=== PATIENT | male | born 1960 | race Caucasian/White ===

== ENCOUNTER → 2016-07-12 | Outpatient (CLI) | payer OTHER ==
[~2016-07-12] MED LIST: AUGM875T27 PO; CELE-19 PO; COLA100C PO; COZA50TA PO; FISH5CAP PO; HYDR12.55 PO; HYZA50TA2 PO; LOSA50TA20 PO; LUTECAP2 PO; MULTCAP PO; MYLI40DR PO; NEUR600T PO; PERCOCET PO; ROXI1TAB2 PO; SIMV20TA2 PO; TYLE325T5 PO; VITA100072 PO; ZOCO10TA PO
--- NOTE | 2016-07-13 23:05 | ECGEPIP ---
Stationary ECG Study [facility] Test Date: 2016-07-12 Pat Name: INOCENCIA ARGUELLES Department: Room: - Gender: M Utilization Review Nurse: : 1960 Requested By: DILIA Rogers Order Number: [id number] Reading MD: Helen Wynn Measurements Intervals [place] Rate: 66 P: 47 NV: 166 QRS: 53 QRSD: 98 T: 10 QT: 396 QTc: 415 Interpretive Statements SINUS RHYTHM Electronically Signed On 07-13-2016 23:05:25 EST by Helen Wynn
== END ==
LOC: M EKG 14:39
PROVIDERS: ATTEND Anesthesiology
DX: Z01.818 Encounter for other preprocedural examination (principal)

== ENCOUNTER 2016-07-19 06:30 | Day surgery (SDC) | payer OTHER ==
[~2016-07-19] VITALS: Ht 167.6 cm; Wt 93.0 kg
[2016-07-19] VITALS (7 sets, daily range): BP systolic 127–145; BP diastolic 65–79
[2016-07-19] MEDS ORDERED: LR 1,000 ML IV SCH ×3 (06:45→10:00)
[2016-07-19] MEDS ORDERED: ceFAZolin SOD 1 GM in D5W MINI-BAG PLUS 50 ML IV ONE (06:45)
[2016-07-19] MEDS ORDERED: MIDAZOLAM INJ 2 MG/2 ML VIAL (J2250) As Ordered ONE (07:05)
[2016-07-19] MEDS ORDERED: fentaNYL 250 MCG/5 ML INJECTION (J3010) As Ordered ONE (07:06)
[2016-07-19] MEDS ORDERED: LIDOCAINE 2% INJ 100 MG/5 ML SDV (FOR ANES.) As Ordered ONE (07:07)
[2016-07-19] MEDS ORDERED: PROPOFOL 200 MG/20 ML VIAL As Ordered ONE ×2 (07:07→07:08)
[2016-07-19] MEDS ORDERED: ROCURONIUM BROMIDE 50 MG/5 ML VIAL As Ordered ONE (07:10)
[2016-07-19] MEDS ORDERED: BUPIVACAINE/EPIN 0.25% 30 ML VIAL As Ordered ONE (07:23)
[2016-07-19] MEDS ORDERED: dexameTHASONE 4 MG/ML 1ML VIAL (J1100) As Ordered ONE (08:03)
[2016-07-19] MEDS ORDERED: METOCLOPRAMIDE INJ 10MG/2ML VIAL (J2765) As Ordered ONE (08:03)
[2016-07-19] MEDS ORDERED: BUPIVACAINE/EPIN 0.25% 30 ML VIAL XX ONE (08:14)
[2016-07-19] MEDS ORDERED: BUPIVACAINE LIPOSOME/PF 1.3% 20ML (266MG/20ML) VIAL (EXPAREL) As Ordered ONE (08:45)
[2016-07-19] MEDS ORDERED: BUPIVACAINE LIPOSOME/PF 1.3% 20ML (266MG/20ML) VIAL (EXPAREL) XX ONE (08:51)
[2016-07-19] MEDS ORDERED: fentaNYL 100 MCG/2 ML INJECTION (J3010) As Ordered ONE (09:39)
--- NOTE | 2016-07-19 09:42 | RO ---
DATE OF PROCEDURE: 07/19/2016 PREOPERATIVE DIAGNOSIS: Incisional hernia at the umbilicus. POSTOPERATIVE DIAGNOSIS: Incisional hernia. PROCEDURE: Laparoscopic incisional hernia repair with Ventralight mesh. SURGEON: Ayo Ramos Jr., MD ANESTHESIA: General endotracheal anesthesia. ESTIMATED BLOOD LOSS (EBL): Minimal. FLUIDS: Crystalloid. DESCRIPTION OF PROCEDURE: Brief procedure summary: The patient was brought to the operating room and was given general anesthesia. After adequate anesthesia was established and preoperative antibiotics were given, the patient was prepped and draped in usual sterile fashion. Next, a left upper quadrant 5 mm trocar site was made with skin knife. Blunt dissection was carried down through the skin and subcutaneous tissue, and a Veress needle was placed into the abdominal cavity and insufflated to 15 mm of pressure. A dilating 5 mm trocar was placed in the left upper quadrant and under direct visualization. Next, the left lower quadrant 5 mm trocar was placed under direct visualization. There was an obvious periumbilical incision that had omentum in it, and this was all taken down with a harmonic scalpel; but once this was performed, there was some diastasis of the rectus muscle above the umbilicus; and essentially, starting at the umbilicus, going superiorly, but then multiple fascial defects could be appreciated at this time and ([place] cheese[place] presentation of the fascia up above the umbilicus was appreciated. Thus, the falciform ligament was taken down with a harmonic scalpel to allow for the mesh to be placed appropriately, and the abdomen was desufflated after marking out the location of the mesh and the desired total length of the mesh. A 15 cm circumferential round Ventralight mesh was picked for the repair, and this was placed through a 12 mm incision just above the midline to the left in the center of the fascial defect. Next, a SecureStrap times two was used first along the midline of the fascial defect superiorly and inferiorly and then circumferentially. Once this was evaluated, it was apparent that it was in very nice placement. However, there was still some bowing of the mesh along the medial aspect of the rectus muscle bilaterally; and, thus, a few tacks were placed along this edge, as well, to hold the mesh in place. Once this was placed, Exparel, as well as Marcaine, was used in the fascia on both sides of the repair. The balloon was removed, and all current trocars were removed under direct visualization. 4-0 Vicryl was used to close all skin incisions. Steri-Strips and a dry sterile dressing were applied. The patient was awake, alert, hemodynamically stable. Sponge and needle counts correct times two.
[2016-07-19] MEDS ORDERED: ONDANSETRON 4MG/2ML VIAL (J2405) IV PRN ×2 (09:45→10:00)
[2016-07-19] MEDS ORDERED: MORPHINE 2 MG/ML 1ML SYRINGE IV PRN (09:45)
[2016-07-19] MEDS ORDERED: fentaNYL 100 MCG/2 ML INJECTION (J3010) IV PRN (10:00)
[2016-07-19] MEDS ORDERED: PERCOCET 5MG/325MG TAB As Ordered ONE (10:19)
[2016-07-19] MEDS ORDERED: PERCOCET 5MG/325MG TAB PO PRN (10:45)
--- NOTE | 2016-07-19 10:48 | ECGEPIP ---
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 : 1960 Requested By: Ayo Jacobo Order Number: [id number] Reading MD: Belen Saavedra Measurements Intervals [place] Rate: 61 P: 21 IN: 134 QRS: 32 QRSD: 113 T: 8 QT: 425 QTc: 431 Interpretive Statements SINUS RHYTHM NO CHANGE C/W 07/12/16 Electronically Signed On 07-19-2016 10:47:58 EST by Belen Saavedra
[2016-07-19] MEDS ORDERED: ALBUTEROL SULFATE 2.5 MG/0.5 ML INH NEB SOLN INH SCH (12:00)
[2016-07-19] MEDS: NORCO, ANEXSIA 5/325MG TABLET (HYDROcodone/ACETAMINOPHEN) PO PRN ×3 (13:18→23:42)
[2016-07-19] MEDS: LR 1,000 ML IV SCH ×2 (13:48→17:13)
[2016-07-19] MEDS: SIMETHICONE 80 MG CHEW TAB PO SCH ×3 (14:11→21:06)
[2016-07-19] MEDS: KETOROLAC 30 MG/ML VIAL (J1885) IV SCH ×2 (15:45→21:06)
[2016-07-20] VITALS: BP 130/64
[2016-07-20] MEDS: KETOROLAC 30 MG/ML VIAL (J1885) IV SCH ×2 (03:02→08:29)
[2016-07-20 04:00] VITALS: BP 132/76
[2016-07-20] MEDS: SIMETHICONE 80 MG CHEW TAB PO SCH (08:29)
== END 2016-07-20 09:55 | disposition home or self-care (01) ==
LOC: M SDC 06:30 → M PED 12:54 → M SDC 07-20 09:55
PROVIDERS: ATTEND Surgery
DX: K43.2 Incisional hernia without obstruction or gangrene (principal); I10 Essential (primary) hypertension; E78.00 Pure hypercholesterolemia, unspecified; G47.30 Sleep apnea, unspecified; Z79.899 Other long term (current) drug therapy
CPT/HCPCS: 49654; 93005; 94640; 96374; 96376; C1781; J0690; J1100; J1885; J2250; J2765; J3010

== ENCOUNTER → 2016-09-08 | Outpatient (REF) | payer OTHER | LOC: M LAB REF 13:26 | PROVIDERS: ATTEND Internal Medicine Medical Oncology | DX: C18.1 Malignant neoplasm of appendix (principal) ==

== ENCOUNTER 2017-02-28 08:18 | Day surgery (SDC) | payer OTHER ==
[~2017-02-28] VITALS: Ht 167.6 cm; Wt 81.6 kg
[~2017-02-28 08:18] MED LIST changes: +ASPI1TAB PO; -AUGM875T27 PO; +AUGM875T28 PO; -CELE-19 PO; +CELE1CAP4 PO; -COLA100C PO; +COLA100C5 PO; +JANU50TA8 PO; +LIPI20TA PO; +MICA80TA PO
[2017-02-28] MEDS ORDERED: LIDOCAINE 1% SDV 5 ML VIAL SQ ONE (08:30)
[2017-02-28] MEDS ORDERED: ceFAZolin SOD 1 GM in D5W MINI-BAG PLUS 50 ML IV ONE (08:30)
[2017-02-28] MEDS ORDERED: LR 1,000 ML IV ONE (08:30)
[2017-02-28] MEDS ORDERED: ONDANSETRON 4MG/2ML VIAL (J2405) As Ordered ONE ×2 (08:38→11:02)
[2017-02-28] MEDS ORDERED: LIDOCAINE 2% INJ 100 MG/5 ML SDV (FOR ANES.) As Ordered ONE (08:38)
[2017-02-28] MEDS ORDERED: MIDAZOLAM INJ 2 MG/2 ML VIAL (J2250) As Ordered ONE (08:38)
[2017-02-28] MEDS ORDERED: fentaNYL 100 MCG/2 ML INJECTION (J3010) As Ordered ONE (08:38)
[2017-02-28] MEDS ORDERED: ROCURONIUM BROMIDE 50 MG/5 ML VIAL/SYRINGE As Ordered ONE ×2 (08:38→10:26)
[2017-02-28] MEDS ORDERED: dexameTHASONE 4 MG/ML 1ML VIAL (J1100) As Ordered ONE (08:38)
[2017-02-28] MEDS ORDERED: PROPOFOL 200 MG/20 ML VIAL As Ordered ONE (08:38)
[2017-02-28] MEDS ORDERED: BUPIVACAINE/EPIN 0.25% 30 ML VIAL As Ordered ONE (09:37)
[2017-02-28] MEDS ORDERED: ePHEDrine SULFATE 25 MG/5 ML(5MG/ML) SYRINGE As Ordered ONE (10:58)
[2017-02-28] MEDS ORDERED: GLYCOPYRROLATE INJ 0.2 MG/ML 2 ML VIAL As Ordered ONE ×2 (10:58→11:02)
[2017-02-28] MEDS ORDERED: KETOROLAC 60 MG/2 ML VIAL (J1885) As Ordered ONE (10:58)
[2017-02-28] MEDS ORDERED: NEOSTIGMINE 10 MG/10 ML VIAL (J2710) As Ordered ONE (10:58)
[2017-02-28] MEDS ORDERED: HYDROmorphone HCL 2 MG/ML 1ML VIAL (J1170) As Ordered ONE (11:14)
[2017-02-28] MEDS ORDERED: PERCOCET 5MG/325MG TAB As Ordered ONE (12:48)
--- NOTE | 2017-02-28 12:48 | RO ---
DATE OF PROCEDURE: 02/28/2017 PREOPERATIVE DIAGNOSIS: Left inguinal hernia. POSTOPERATIVE DIAGNOSES: 1. Multiple intra-abdominal adhesions. 2. Left inguinal hernia (direct). PROCEDURE: 1. Laparoscopic lysis of adhesions. 2. Robotic-assisted laparoscopic left inguinal hernia repair. SURGEON: Ayo Ramos MD PROM BURN OFF OPERATOR: ANESTHESIA: General endotracheal anesthesia. ESTIMATED BLOOD LOSS: Minimal. FLUIDS: Crystalloid. DESCRIPTION OF PROCEDURE: The patient was brought to the operating room, was given general anesthesia. After adequate anesthesia and preoperative antibiotics were given, the patient was prepped and draped in usual sterile fashion. Next, the patient had a previous midline incision for a colectomy in the past and after that had a ventral hernia that was repaired laparoscopically with a mesh and thus, a left subcostal incision was made with skin knife adjacent to a previous trocar site that was used for laparoscopic hernia repair and blunt dissection was carried down to fascia. The Veress needle was placed into the abdominal cavity, insufflated to 15 mm of pressure. A dilating 5 mm trocar was placed at this time and there were numerous adhesions up against the mesh circumferentially and thus, a 8 mm trocar was placed at the left lateral abdomen and using Harmonic scalpel this was all taken down laterally and then continued dissecting the omentum off this hernia repair. The ventral lay was nicely approximated throughout the area and after this the right lateral abdominal trocar was placed as well after seeing this area was opened and free of adhesions. All the midline adhesions were eventually taken down using Harmonic scalpel all the way up to the falciform ligament and even down along it to some extent. Once this was opened nicely, then the upper midline trocar was placed/robotic port was placed under direct visualization just above the mesh itself. Once this was placed, the left inguinal area was addressed and in this area there were some adhesions of the colon to the anterior abdominal wall, which were taken down sharply, and eventually once these were taken down the left inguinal area was better visualized. The patient was placed in a Trendelenburg position and then the robotic portion was started. The patient was left in the Trendelenburg position and the robot was docked without undue problems and under direct visualization a grasper on the left hand as well as cautery vaishnavi in the right hand were placed under direct visualization. Next, the peritoneum was taken down starting from the anterior superior iliac spine (ASIS) to the median umbilical ligament using cautery. The peritoneum was taken down using some blunt dissection and some minimal electrocautery on this area and it was taken along the entire length of this and eventually the medial aspect was addressed further given that on palpation it was obvious that there was a direct inguinal hernia present. This medial portion was mobilized down to the level of Roland's and the pubis with blunt dissection. Minimal electrocautery was used to spread and cauterize some branching loose areolar tissue as well. The direct inguinal hernia was mobilized out of the hernia site and eventually once this was mobilized adequately direction was turned to her desires dissection lateral to the internal ring area. The peritoneum was mobilized off this medially and continuing to the cord structures itself, and eventually the peritoneum was mobilized off this area as well. There was some adhesions of the peritoneum up against the cord vessels in the vas in this area, but eventually once this was able to be dissected off this area and I felt the mesh could be placed, a 3DMax mesh, medium size was placed in the preperitoneal space, tacked in on Roland's as well as medially above the pubis, and the mesh itself looked like it was sitting quite nicely in this area. The peritoneum was closed with a V-Loc suture and desufflated under direct visualization. All incisions were closed with #4-0 Vicryl. Steri-Strips and a dry sterile dressing was applied. The patient was awakened, extubated, brought to recovery room awake, alert, hemodynamically stable. Sponge and needle counts correct times two.
[2017-02-28] MEDS: PERCOCET 5MG/325MG TAB PO PRN ×2 (12:50→13:20)
[2017-02-28] MEDS ORDERED: fentaNYL 100 MCG/2 ML INJECTION (J3010) IV PRN (13:00)
[2017-02-28] MEDS ORDERED: METOCLOPRAMIDE INJ 10MG/2ML VIAL (J2765) IV PRN (13:00)
[2017-02-28] MEDS ORDERED: LR 1,000 ML IV SCH ×2 (13:00)
[2017-02-28] MEDS ORDERED: ONDANSETRON 4MG/2ML VIAL (J2405) IV PRN ×2 (13:00)
[2017-02-28] MEDS ORDERED: MORPHINE 2 MG/ML 1ML SYRINGE IV PRN (13:00)
[2017-02-28] MEDS ORDERED: MEPERIDINE INJ 25 MG/ML VIAL (J2175) IV PRN (13:00)
[2017-02-28] MEDS ORDERED: NORCO, ANEXSIA 5/325MG TABLET (HYDROcodone/ACETAMINOPHEN) PO PRN (13:00)
[2017-02-28 14:35] VITALS: BP 112/68
[2017-02-28] MEDS ORDERED: KETOROLAC 30 MG/ML VIAL (J1885) IV SCH (17:00)
== END 2017-02-28 14:45 | disposition home or self-care (01) ==
LOC: M SDC 08:18
PROVIDERS: ATTEND Surgery
DX: K40.90 Unilateral inguinal hernia, without obstruction or gangrene, not specified as recurrent (principal); K66.0 Peritoneal adhesions (postprocedural) (postinfection); E11.9 Type 2 diabetes mellitus without complications; I10 Essential (primary) hypertension; E78.00 Pure hypercholesterolemia, unspecified; C18.9 Malignant neoplasm of colon, unspecified; G47.33 Obstructive sleep apnea (adult) (pediatric); Z79.899 Other long term (current) drug therapy; Z79.82 Long term (current) use of aspirin
CPT/HCPCS: 49650; C1781; J0690; J1100; J1170; J1885; J2250; J2405; J2710; J3010

== ENCOUNTER → 2017-03-14 | Outpatient (REF) | payer OTHER ==
[2017-03-17 10:14] LABS: 5-HIAA, URINE 3.9 mg/L (Undefined)
== END ==
LOC: M LAB REF 09:53
PROVIDERS: ATTEND Internal Medicine Medical Oncology
DX: C18.1 Malignant neoplasm of appendix (principal)

== ENCOUNTER 2017-09-27 08:52 | Emergency (ER) | payer OTHER ==
[2017-09-27] MEDS: ONDANSETRON 4MG/2ML VIAL (J2405) IV (09:33)
[2017-09-27] MEDS: NS 1,000 ML IV (09:33)
[2017-09-27] MEDS: MORPHINE 4 MG/ML 1ML VIAL/SYRINGE (J2270) IV ×2 (09:33→10:01)
[2017-09-27 09:41] LABS: BASO % 0.7 % (0.0-1.0); EOS # 0.2 10^3/uL (0.0-0.50); EOS % 3.8 % (0.0-3.0); HEMOGLOBIN 14.7 g/dl (13.5-17.5); IMMATURE GRANULOCYTE % 0.2 % (0-3.0); LYMPH % 32.3 % (24.0-44.0); MEAN CORPUSCULAR HEMOGLOBIN 30.2 pg (27.0-33.0); MEAN CORPUSCULAR HGB CONC 33.4 g/dl (32.0-36.5); MEAN CORPUSCULAR VOLUME 90.5 fl (80.0-96.0); MONO # 0.5 10^3/uL (0.0-0.8); MONO % 7.6 % (0.0-5.0); NEUTROPHILS # 3.3 10^3/uL (1.8-7.7); NEUTROPHILS % 55.4 % (36.0-66.0); PLATELET COUNT, AUTOMATED 250 10^3/uL (150-450); RED BLOOD COUNT 4.86 10^6/uL (4.30-6.10); RED CELL DISTRIBUTION WIDTH 12.7 % (11.5-14.5)
[2017-09-27 09:46] LABS: KETONE, URINE AUTO RFX NEGATIVE (NEGATIVE); LEUKOCYTE ESTERASE UR AUTO RFX NEGATIVE (NEGATIVE); MUCUS, URINE RFX SMALL (NEGATIVE); NITRITE, URINE AUTO RFX NEGATIVE (NEGATIVE); RBC, URINE AUTO RFX TNTC /HPF (0-3); SPECIFIC GRAVITY UR AUTO RFX 1.019 (1.002-1.035); SQUAM EPITHELIAL CELL UR AURFX 0 /HPF (0-6); WBC, URINE AUTO RFX 3 /HPF (0-3)
[2017-09-27] MEDS: HYDROmorphone HCL 1 MG/ML SYRINGE (J1170) IV (10:28)
[2017-09-27] MEDS: PROMETHAZINE INJ 25 MG/ML VIAL (J2550) IV (10:29)
[2017-09-27] MEDS ORDERED: KETOROLAC 30 MG/ML VIAL (J1885) As Ordered (10:30)
[2017-09-27] MEDS: KETOROLAC 30 MG/ML VIAL (J1885) IV (10:41)
[2017-09-27 10:58] LABS: ANION GAP 6 MEQ/L (8-16); BLOOD UREA NITROGEN 18 MG/DL (7-18); CALCIUM LEVEL 8.4 MG/DL (8.5-10.1); CARBON DIOXIDE LEVEL 26 MEQ/L (21-32); CHLORIDE LEVEL 110 MEQ/L (98-107); CREATININE FOR GFR 1.03 MG/DL (0.70-1.30); GLOMERULAR FILTRATION RATE > 60.0 (>56); GLUCOSE, FASTING 138 MG/DL (70-100); POTASSIUM SERUM 4.2 MEQ/L (3.5-5.1); SODIUM LEVEL 142 MEQ/L (136-145)
== END 2017-09-27 12:19 | disposition home or self-care (01) ==
LOC: M ED 08:52
DX: N20.1 Calculus of ureter (principal); R10.9 Unspecified abdominal pain; I10 Essential (primary) hypertension; G47.30 Sleep apnea, unspecified; Z79.82 Long term (current) use of aspirin; Z79.899 Other long term (current) drug therapy
CPT/HCPCS: J1170

== ENCOUNTER → 2017-10-09 | Outpatient (REF) | payer OTHER ==
[2017-10-09 13:32] LABS: APPEARANCE, URINE CLEAR (CLEAR); BACTERIA, URINE AUTO NEGATIVE (NEGATIVE); BILIRUBIN, URINE AUTO NEGATIVE (NEGATIVE); BLOOD, URINE BLOOD NEGATIVE (NEGATIVE); COLOR, URINE STRAW (YELLOW); GLUCOSE, URINE (UA) AUTO NEGATIVE (NEGATIVE); KETONE, URINE AUTO NEGATIVE (NEGATIVE); LEUKOCYTE ESTERASE, URINE AUTO NEGATIVE (NEGATIVE); NITRITE, URINE AUTO NEGATIVE (NEGATIVE); PROTEIN, URINE AUTO NEGATIVE (NEGATIVE); RBC, URINE AUTO 0 /HPF (0-3); SPECIFIC GRAVITY URINE AUTO 1.006 (1.002-1.035); SQUAMOUS EPITHELIAL CELL UR AU 0 /HPF (0-6); UROBILINOGEN, URINE AUTO 0.2 mg/dL (0.0-2.0); WBC, URINE AUTO 1 /HPF (0-3)
== END ==
LOC: M SMT 12:45
DX: N20.0 Calculus of kidney (principal)

== ENCOUNTER → 2017-10-10 | Outpatient (REF) | payer OTHER | LOC: M SMT 18:09 | DX: N20.0 Calculus of kidney (principal) ==

== ENCOUNTER 2017-11-16 06:57 | Day surgery (SDC) | payer OTHER ==
[2017-11-16] MEDS ORDERED: PROPOFOL 200 MG/20 ML VIAL As Ordered (07:56)
[2017-11-16] MEDS ORDERED: LIDOCAINE 2% INJ 100 MG/5 ML SDV (FOR ANES.) As Ordered (07:56)
== END 2017-11-16 09:07 | disposition home or self-care (01) ==
LOC: M OPP 06:57
DX: Z12.11 Encounter for screening for malignant neoplasm of colon (principal); Z85.038 Personal history of other malignant neoplasm of large intestine; Z08 Encounter for follow-up examination after completed treatment for malignant neoplasm; Z86.010 Personal history of colon polyps; K57.30 Diverticulosis of large intestine without perforation or abscess without bleeding; Z98.0 Intestinal bypass and anastomosis status; Z87.19 Personal history of other diseases of the digestive system; I10 Essential (primary) hypertension; E78.5 Hyperlipidemia, unspecified; E11.9 Type 2 diabetes mellitus without complications; G47.30 Sleep apnea, unspecified; Z87.442 Personal history of urinary calculi; F17.290 Nicotine dependence, other tobacco product, uncomplicated; Z79.82 Long term (current) use of aspirin; Z79.899 Other long term (current) drug therapy; Z79.84 Long term (current) use of oral hypoglycemic drugs
CPT/HCPCS: G0105

== ENCOUNTER → 2018-11-01 | Outpatient (CLI) | payer OTHER ==
[~2018-11-01] MED LIST changes: -ASPI1TAB PO; +ASPI81TA26 PO; +FLOM0.4C39 PO; +GASTROGRAFIN SOLUTION 30ML (Q9963) As Ordered ONE; +ISOVUE-370 76% 100ML VIAL (Q9967) As Ordered ONE; -LOSA50TA20 PO; +LOSA50TA88 PO; +MICA40TA PO; +PERC5TAB12 PO; +VITA100018 PO; -VITA100072 PO; +ZOFR4TAB14 PO
--- NOTE | 2018-11-01 12:18 | REP ---
Clinical: Carcinoid. Restaging. Technique: Axial contrast enhanced images from the thoracic inlet to the upper abdomen with coronal and sagittal re-formations using 100 ml Isovue 370 intravenous contrast material. Comparison: 09/07/2015. Findings: Bilateral lung hernandez are well-aerated, relatively symmetric and essentially clear. No acute consolidation, nodule or mass lesion. Calcified granulomata remain stable and consistent with prior granulomatous disease. No effusion. No pneumothorax. Tracheobronchial tree is patent. Mediastinum demonstrates normal thoracic aorta, pulmonary vasculature and heart/pericardium. No axillary, hilar, or mediastinal adenopathy. Musculoskeletal structures intact without focal osseous abnormality. Impression: No acute mediastinal or pleuroparenchymal process. No evidence for metastatic disease. Chronic calcified granulomata. Electronically Signed by Jerald Frausto MD 11/01/2018 12:09 P
--- NOTE | 2018-11-01 12:24 | REP ---
Clinical: Carcinoma. Restaging. Technique: Axial contrast enhanced images from the lung bases to the pubic symphysis using oral (per protocol) and 100 ml Isovue 370 intravenous contrast material with coronal and sagittal re-formations as well as delayed images of the abdomen. Comparison: 09/27/2017. Findings: Liver, spleen, pancreas, gallbladder, and bilateral adrenal glands are normal. Left kidney demonstrates 3 mm nonobstructing intrarenal calculus. Two to three calcifications in the right hector pelvis inseparable from the distal right ureter approaching the ureterovesicle junction measure up to 5 mm and are concerning for nonobstructing ureteral calculi. The enteric system is without obstruction or acute inflammatory process. Postsurgical changes at the cecum consistent with the given history of carcinoid. Moderate fecal stasis and possible constipation requires clinical correlation. Pelvis demonstrates normal bladder and age appropriate prostate/seminal vesicles. No free air. No free fluid. No significant adenopathy. Abdominal aorta without aneurysm or dissection. Surrounding musculoskeletal structures without focal osseous abnormality. Impression: 1. 3 mm nonobstructing left renal calculus. Suspected nonobstructing distal right ureteral calculi up to 5 mm. Correlation and urology consultation may be recommended. 2. Moderate fecal stasis and possible constipation requires clinical correlation. 3. Postsurgical changes at the cecum. 4. No evidence for recurrence or metastatic disease. No ascites. No adenopathy. No focal inflammatory stranding. Electronically Signed by Jerald Frausto MD 11/01/2018 12:16 P
== END ==
LOC: M RAD 10:02
PROVIDERS: ATTEND Nurse Practitioner Family
DX: C18.9 Malignant neoplasm of colon, unspecified (principal); J84.10 Pulmonary fibrosis, unspecified; N28.1 Cyst of kidney, acquired
CPT/HCPCS: 71260; 74177; Q9963; Q9967

== ENCOUNTER → 2018-11-19 | Outpatient (REF) | payer OTHER ==
[~2018-11-19] MED LIST changes: -GASTROGRAFIN SOLUTION 30ML (Q9963) As Ordered ONE; -ISOVUE-370 76% 100ML VIAL (Q9967) As Ordered ONE; +LUTE15CA PO
[2018-11-23 10:18] LABS: Ca Ox Monohydrate 85 % (.); Size 7x4x3 mm (.)
== END ==
LOC: M SMT 17:28
PROVIDERS: ATTEND Nurse Practitioner Family
DX: N20.0 Calculus of kidney (principal)
CPT/HCPCS: 82360; G0463

== ENCOUNTER → 2019-06-10 | Outpatient (CLI) | payer OTHER ==
[~2019-06-10] MED LIST changes: -SIMV20TA2 PO; +SIMV20TA22 PO
--- NOTE | 2019-06-10 14:44 | REP ---
Clinical: Generalized pain . Comparison: 08/06/2014 . Technique: PA and lateral. Findings: The mediastinum and cardiac silhouette are normal. The lung hernandez are clear and without acute consolidation, effusion, or pneumothorax. The skeletal structures are intact and normal. Impression: 1. No acute cardiopulmonary process. Electronically Signed by Jerald Frausto MD 06/10/2019 02:36 P
== END ==
LOC: M LRY 14:02
PROVIDERS: ATTEND Physician Assistant
DX: R52 Pain, unspecified (principal)
CPT/HCPCS: 71046; 87804; G0463

== ENCOUNTER 2020-01-23 10:55 | Day surgery (SDC) | payer OTHER ==
[2020-01-23] MEDS ORDERED: LIDOCAINE 2% 100MG/5ML SDV (FOR ANES.) ONE (11:22)
[2020-01-23] MEDS ORDERED: fentaNYL 100 MCG/2 ML INJECTION (J3010) ONE (11:22)
[2020-01-23] MEDS ORDERED: propofoL 200 MG/20 ML VIAL ONE (11:22)
== END 2020-01-23 12:18 | disposition home or self-care (01) ==
LOC: M SDC 10:55
PROVIDERS: ATTEND Surgery
DX: D50.9 Iron deficiency anemia, unspecified (principal); K29.70 Gastritis, unspecified, without bleeding; E11.9 Type 2 diabetes mellitus without complications; I10 Essential (primary) hypertension; Z79.82 Long term (current) use of aspirin; Z79.899 Other long term (current) drug therapy; Z72.0 Tobacco use
CPT/HCPCS: 43235; 45378; J3010

== ENCOUNTER → 2020-10-27 | Outpatient (CLI) | payer OTHER ==
[~2020-10-27] MED LIST changes: +COVI30VI IM; +FERR325T18 PO; +GASTROGRAFIN SOLUTION 30ML (Q9963) As Ordered ONE; +ISOVUE-370 76% 100ML VIAL As Ordered ONE; +MULT-90 PO
--- NOTE | 2020-10-28 06:50 | REP ---
INDICATION: INCREASING TUMOR MARKERS COMPARISON: 09/07/2015 TECHNIQUE: Axial contrast enhanced images from the thoracic inlet to the upper abdomen using 100 ml Isovue 370 intravenous contrast material followed by CT of the abdomen and pelvis. Coronal and sagittal reformations obtained. This CT examination was performed using the following dose reduction techniques: Automated exposure control, adjustment of mA and/or kv according to the patient's size, and use of iterative reconstruction technique. FINDINGS: The bilateral lung hernandez are well aerated and relatively symmetric. Few small scattered nodular densities along with 1.1 cm centrally calcified nodule in the medial left lower lobe remain essentially unchanged. Small calcified mediastinal lymph nodes are also identified. No new acute consolidation, new significant nodule or mass. No effusion. No pneumothorax. Tracheobronchial tree is patent. No acute adenopathy. Further evaluation of the mediastinum demonstrates normal/stable appearance to the thoracic aorta, pulmonary vasculature, and heart/pericardium. Musculoskeletal structures are intact and without acute osseous abnormality. IMPRESSION: Stable nodules and calcified nodule/nodes unchanged compared to 2016. No new acute mediastinal or pleuroparenchymal process. No evidence for metastatic disease. <Electronically signed by Jerald Frausto > 10/28/20 [id number]
--- NOTE | 2020-10-28 06:55 | REP ---
INDICATION: INCREASING TUMOR MARKERS. COMPARISON: 11/01/2018 TECHNIQUE: Axial contrast-enhanced images from the lung bases to the pubic symphysis using oral and 100 cc Isovue 370 intravenous contrast material. Delayed images of the abdomen along with coronal and sagittal reformations obtained. This CT examination was performed using the following dose reduction techniques: Automated exposure control, adjustment of mA and/or kv according to the patient's size, and the use of iterative reconstruction technique. FINDINGS: Liver, spleen, pancreas, gallbladder, bilateral adrenal glands and kidneys are essentially normal. Incidental 4 mm nonobstructing left renal calculus noted. The enteric system is without obstruction or acute inflammatory process. Postsurgical changes at the cecum including appendectomy again noted. The cecum and proximal ascending colon is poorly evaluated due to the lack of intraluminal contrast. No obvious recurrent mass or right lower quadrant metastatic disease/adenopathy is identified. Few scattered diverticula noted without acute diverticulitis.. Pelvis demonstrates normal bladder and age-appropriate prostate/seminal vesicles. No ascites. No free air. No intraperitoneal or retroperitoneal adenopathy. Abdominal aorta and vasculature appear normal. Musculoskeletal structures are intact and without acute osseous abnormality. IMPRESSION: 1. No acute abdominopelvic pathology appreciated. 2. No evidence for recurrence or new metastatic disease identified. 3. Evaluation of the cecum and ascending colon is limited by the lack of intraluminal contrast. Colonoscopy may be warranted for more definitive evaluation of this region. <Electronically signed by Jerald Frausto > 10/28/20 0652
== END ==
LOC: M RAD 14:06
PROVIDERS: ATTEND Internal Medicine Medical Oncology
DX: C18.1 Malignant neoplasm of appendix (principal)

== ENCOUNTER → 2020-11-23 | Outpatient (CLI) | payer OTHER ==
[~2020-11-23] MED LIST changes: -GASTROGRAFIN SOLUTION 30ML (Q9963) As Ordered ONE; -ISOVUE-370 76% 100ML VIAL As Ordered ONE
--- NOTE | 2020-11-24 10:34 | REP ---
INDICATION: RESTAGING MALIGNANT NEOPLASM OF APPENDIX. COMPARISON: No prior PET CTs for comparison. Previous CT scan chest abdomen and pelvis 10/27/2020 has been reviewed. TECHNIQUE: After the intravenous administration of 8.64 mCi of FDG 18 triplane whole-body PET-CT was performed from the skull base to the mid thigh. FINDINGS: There is diffuse hypermetabolic activity seen throughout the colon. Scattered areas of hypermetabolic activity are also seen throughout the small bowel particularly in the right lower quadrant. There are scattered areas of abnormal hypermetabolism seen in the axial and appendicular skeleton. The SUV values of which range from 2.5-2.81. There are no other areas of abnormal hypermetabolic activity seen in the neck, chest, abdomen, or pelvis. IMPRESSION: 1. There is uptake seen in both large and small bowel which is a well-known pit fall of PET. 2. There is a skeletal hypermetabolism, as described above, the etiology of which is uncertain. I have not been given history of chemotherapy. This needs to be correlated clinically. At this time, this finding does not rule in or rule out diffuse skeletal metastasis. <Electronically signed by Orlin Ross > 11/24/20 [id number]
== END ==
LOC: M PLARAD 13:24
PROVIDERS: ATTEND Internal Medicine Medical Oncology
DX: C18.1 Malignant neoplasm of appendix (principal)
CPT/HCPCS: 78815; A9552

== ENCOUNTER → 2021-01-22 | Outpatient (CLI) | payer OTHER ==
--- NOTE | 2021-01-22 14:51 | REP ---
INDICATION: APPENDIX CA, UPTAKE ON PET SCAN. COMPARISON: PET scan dated 11/23/2020. TECHNIQUE/RADIOTRACER AND DOSE: The study is performed with MDP radiolabeled with 21.1 mCi of technetium 99 M. FINDINGS: There is a tiny focus of uptake superimposed over the cervical spine to the left of midline on the posterior images. On the oblique images there is apparent slightly increased uptake in the pedicles of the midthoracic spine, however, I suspect that this is artifactual as it is seen only in the pedicles and are closest to the imaging screen on changing patient position, therefore may be more positional artifact than real uptake. There is slightly increased uptake at the left foot TMT articulations, likely from degenerative arthritic change. IMPRESSION: Small focus of barely visible uptake superimposed over the cervical spine on the left. Probable artifactual uptake pattern in the mid thoracic spine pedicles as seen on the oblique views. Faintly visible degenerative uptake in the left foot TMT articulations. <Electronically signed by Luca Leyva > 01/22/21 [id number]
== END ==
LOC: M RAD 10:51
PROVIDERS: ATTEND Internal Medicine Medical Oncology
DX: C18.1 Malignant neoplasm of appendix (principal)

== ENCOUNTER 2021-05-04 06:47 | Day surgery (SDC) | payer OTHER ==
[~2021-05-04] VITALS: Ht 167.6 cm; Wt 80.5 kg
[~2021-05-04 06:47] MED LIST changes: +COLE625T PO; +LOSA50TA28 PO; -LOSA50TA88 PO; +NS 1,000 ML IV ONE
[2021-05-04] MEDS ORDERED: LIDOCAINE 2% 100MG/5ML SDV (FOR ANES.) As Ordered ONE (07:20)
[2021-05-04] MEDS ORDERED: propofoL 200 MG/20 ML VIAL As Ordered ONE (07:21)
[2021-05-04 09:05] VITALS: BP 132/87
== END 2021-05-04 09:05 | disposition home or self-care (01) ==
LOC: M OPP 06:47
PROVIDERS: ATTEND Internal Medicine Gastroenterology
DX: D12.5 Benign neoplasm of sigmoid colon (principal); R19.7 Diarrhea, unspecified; R93.3 Abnormal findings on diagnostic imaging of other parts of digestive tract; K57.30 Diverticulosis of large intestine without perforation or abscess without bleeding; K64.8 Other hemorrhoids; Z98.0 Intestinal bypass and anastomosis status; I10 Essential (primary) hypertension; E78.5 Hyperlipidemia, unspecified; E11.9 Type 2 diabetes mellitus without complications; G47.33 Obstructive sleep apnea (adult) (pediatric); Z79.899 Other long term (current) drug therapy

== ENCOUNTER 2023-03-21 07:50 | Day surgery (SDC) | payer OTHER ==
[~2023-03-21] VITALS: Ht 167.6 cm; Wt 85.3 kg
[~2023-03-21 07:50] MED LIST changes: -COZA50TA PO; +EZET10TA21 PO; -HYZA50TA2 PO; +JARD1TAB3 PO; +LOSA-528 PO; +LOSA-532 PO; +METF750T36 PO; +PRES10CA2 PO; +SIMV-252 PO; +TELM1TAB37 PO; -ZOCO10TA PO
[2023-03-21] MEDS ORDERED: fentaNYL 100 MCG/2 ML INJECTION As Ordered ONE (08:52)
[2023-03-21] MEDS ORDERED: propofoL 200 MG/20 ML VIAL As Ordered ONE (08:53)
[2023-03-21] MEDS ORDERED: LIDOCAINE 2% 100MG/5ML SDV (FOR ANES.) As Ordered ONE (08:53)
[2023-03-21 09:25] VITALS: TEMP 98.7
[2023-03-21 09:43] VITALS: BP 126/76; O2SAT 96
== END 2023-03-21 09:59 | disposition home or self-care (01) ==
LOC: M OPP 07:50
PROVIDERS: ATTEND Internal Medicine Gastroenterology
DX: D50.9 Iron deficiency anemia, unspecified (principal); K29.70 Gastritis, unspecified, without bleeding; Z86.012 Personal history of benign carcinoid tumor; Z86.010 Personal history of colon polyps; Z87.19 Personal history of other diseases of the digestive system; Z98.0 Intestinal bypass and anastomosis status; I10 Essential (primary) hypertension; E78.00 Pure hypercholesterolemia, unspecified; E11.9 Type 2 diabetes mellitus without complications; Z79.899 Other long term (current) drug therapy; Z79.84 Long term (current) use of oral hypoglycemic drugs; Z79.82 Long term (current) use of aspirin
CPT/HCPCS: 43239; 45378; 88305; J3010

== ENCOUNTER → 2023-10-30 | Outpatient (CLI) | payer OTHER ==
[~2023-10-30] MED LIST changes: +GASTROGRAFIN SOLUTION 30ML ONE; +ISOVUE-370 76% 100ML VIAL ONE; -NS 1,000 ML IV ONE; +OMEP-173
== END ==
LOC: M PLAIMG 07:02
PROVIDERS: ATTEND Internal Medicine Medical Oncology
DX: C18.1 Malignant neoplasm of appendix (principal)
CPT/HCPCS: 74177; Q9963; Q9967

== ENCOUNTER → 2023-12-01 | Outpatient (CLI) | payer OTHER ==
[~2023-12-01] MED LIST changes: -GASTROGRAFIN SOLUTION 30ML ONE; -ISOVUE-370 76% 100ML VIAL ONE
== END ==
LOC: M RAD 08:14
PROVIDERS: ATTEND Surgery
DX: K31.84 Gastroparesis (principal)
CPT/HCPCS: 78264; A9541

== ENCOUNTER → 2024-10-14 | Outpatient (CLI) | payer OTHER ==
[~2024-10-14] MED LIST changes: -FLOM0.4C39 PO; +ISOVUE-370 76% 100ML VIAL As Ordered ONE; +TAMS-18 PO
== END ==
LOC: M RAD 08:36
PROVIDERS: ATTEND Internal Medicine Medical Oncology
DX: C18.1 Malignant neoplasm of appendix (principal)
CPT/HCPCS: 71260; 74177; Q9967